=== PATIENT | female | born 1950 | race Caucasian/White ===

== ENCOUNTER 2017-02-27 09:34 | Outpatient (CLI) | payer MEDICARE, OTHER ==
[2017-02-27 10:33] LABS: eGFR (African) > 60; eGFR (Non-African) > 60
== END 2017-02-27 09:35 ==
LOC: LAB 09:34
PROVIDERS: ATTEND Family Medicine
DX: R73.9 Hyperglycemia, unspecified (principal)
CPT/HCPCS: 36415; 80053; 80061; 83036

== ENCOUNTER 2017-03-27 10:47 | Outpatient (CLI) | payer MEDICARE, OTHER | END 2017-03-27 10:50 | LOC: RAD 10:47 | PROVIDERS: ATTEND Family Medicine | DX: M81.0 Age-related osteoporosis without current pathological fracture (principal) | CPT/HCPCS: 77080 ==

== ENCOUNTER 2018-04-17 16:01 | Outpatient (CLI) | payer MEDICARE, OTHER | END 2018-04-17 16:06 | disposition home or self-care (01) | LOC: LABRHC 16:01 | PROVIDERS: ATTEND Physician Assistant | DX: R30.0 Dysuria (principal) | CPT/HCPCS: 87086 ==

== ENCOUNTER 2018-06-11 12:54 | Outpatient (CLI) | payer MEDICARE, OTHER ==
--- NOTE | 2018-06-11 14:17 | Diagnostic Imaging Report ---
TORIBIO BANERJEE [facility] [id number] [id number] Report Submission Date: Jun 11, 2018 1:52:01 PM [employer] Patient Study Name: MARCELLUS VILLALOBOS Date: Jun 11, 2018 12:00:00 AM [employer] Modality Type: DEXA\OT Gender: F Description: DEXA : 50 Institution: [facility] Physician: TORIBIO BANERJEE Examination: Bone density History: Assess bone mineralization Comparison exams: None available Technique: DEXA protocol Findings: Average bone mineral density from L1 through L4: 0.774 grams cm2. T score: -3.4 Average bone mineral density of the left femoral neck: 0.609 grams cm2. T score: -3.2 Average bone mineral density of the right femoral neck: 0.622 grams cm2. T score: -3.1 Impression: Lumbar spine and hip osteoporosis. Examination: Bone density History: Assess bone mineralization Comparison exams: 13 January 2007 Technique: DEXA protocol Findings: Average bone mineral density from L1 through L4: 1.171 grams cm2. T score: -0.1, Previously -0.3 Bone mineral density of the left hip (total) 0.941 gm/cm2. T score: -0.5, Previously -0.4 Bone mineral density of the right hip (total) 0.919 gm/cm2. T score: -0.7, Previously -0.5 Impression: Normal lumbar spine and (total) hip mineralization for age Electronically signed on Jun 11, 2018 1:52:01 PM [employer] by: Seth FLANAGAN
== END 2018-06-11 12:55 ==
LOC: RAD 12:54
PROVIDERS: ATTEND Family Medicine
DX: M81.0 Age-related osteoporosis without current pathological fracture (principal)
CPT/HCPCS: 77080

== ENCOUNTER 2018-07-15 09:23 | Outpatient (CLI) | payer MEDICARE, OTHER ==
[2018-07-15 10:22] LABS: eGFR (Non-African) > 60
== END 2018-07-15 09:30 ==
LOC: LAB 09:23
PROVIDERS: ATTEND Family Medicine
DX: R73.9 Hyperglycemia, unspecified (principal); M81.0 Age-related osteoporosis without current pathological fracture
CPT/HCPCS: 36415; 80053; 83036